=== PATIENT | female | born 2000 | race Caucasian/White ===

== ENCOUNTER 2020-09-19 09:06 | Emergency (ER) | payer SELFPAY ==
[2020-09-19] MEDS ORDERED: Tetracaine HCl/PF 0.5% 4 ML Bottle EYERT ONE (09:19)
[2020-09-19] MEDS ORDERED: Fluorescein 1 MG Ophth Strip EYERT ONE (09:19)
[2020-09-19] MEDS ORDERED: prednisoLONE Acetate 1% Ophth Susp 5 ML Bottle EYERT ONE (09:20)
[2020-09-19] MEDS ORDERED: Gentamicin 0.3% Ophth Soln 5 ML Bottle EYERT ONE (09:21)
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
== END 2020-09-19 10:30 | disposition home or self-care (01) ==
LOC: DL.ED 09:06
DX: S05.01XA Injury of conjunctiva and corneal abrasion without foreign body, right eye, initial encounter (principal); X58.XXXA Exposure to other specified factors, initial encounter
CPT/HCPCS: 99283; A9270